=== PATIENT | female | born 2000 | race Caucasian/White ===

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

== ENCOUNTER → 2020-07-18 | Outpatient (CLI) | payer OTHER ==
--- NOTE | 2020-07-18 09:30 | KCIC ---
Right breast ultrasound: Reason for examination: Painful right breast lump. Right breast ultrasound in the area of clinical concern and in the retroareolar and axillary regions of the right breast was performed. At the 11:00 position 7 cm from the nipple and corresponding to the area of clinical concern, there is dense fibroglandular tissue with some ductal ectasia. No solid suspicious-appearing nodules are seen. No abnormal appearing lymph nodes are seen in the axilla. IMPRESSION: Dense fibroglandular tissue. No suspicious abnormality seen. Recommend clinical follow-up. BI-RADS Category 2: Benign. "Our facility is accredited by the [employer] Mammography Program." This patient's information has been entered into a reminder system for the patient to be notified with the results of her examination and a target date for the next mammogram. Electronically signed by: Laxmi Bowman MD (07/18/2020 9:27 AM) [id number]
== END | disposition home or self-care (01) ==
LOC: KCIC US 07:59
PROVIDERS: ATTEND Obstetrics & Gynecology
DX: N60.41 Mammary duct ectasia of right breast (principal)
CPT/HCPCS: 76641